=== PATIENT | male | born 1995 | race Caucasian/White ===

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

== ENCOUNTER → 2017-11-27 | Outpatient (CLI) | payer OTHER | LOC: BMCIMAGING 15:47 | PROVIDERS: ATTEND Family Medicine | DX: M25.572 Pain in left ankle and joints of left foot (principal); S92.355A Nondisplaced fracture of fifth metatarsal bone, left foot, initial encounter for closed fracture ==